=== PATIENT | male | born 1970 | race Caucasian/White ===

== ENCOUNTER → 2017-02-12 | Outpatient (CLI) | payer MEDICAID ==
[~2017-02-12] MED LIST: HYDROCHLOROTHIA1 TA1 PO; LISINOPRIL/HCTZ1 TA3; SYMBICORT 10.10.2 M1 IH; THE MEDICINE SH20 M1 PO; VENTOLIN4 MG IH
--- NOTE | 2017-02-20 22:07 | RADIOLOGY REPORT PS360 ---
MRI-LOW EXT ANY JOINT W/O-RT MRI right ankle HISTORY: RIGHT ANKLE POST SURGICAL PAIN history of 2 surgeries on ankle with the last in October 2016. Pain around the ankle joint but most pronounced medial aspect. Pain with standing ankle swelling Ankle Patient Age: 46 years: Male Ordering Physician: GIANNI RAMIREZ DPM TECHNIQUE: Multiplanar multisequence imaging 1.5 T MR COMPARISON /FINDINGS Outside Preoperative right ankle from February 2016 a limited value but I would note prominent fragmentation at medial malleolus on that study as well as a January 2016 right ankle from this facility. :No recent plain films are available for comparison unfortunately but these would be very helpful as would correlation with more detailed surgical history. Patient has undergone it appears bimalleolar surgery. Understand most recent surgery October 2016. Medial Ankle . The postsurgical changes are most evident in pronounced at the medial ankle.. Superiorly directed screw seen entering at inferior tip of the medial malleolus evident./There is also a second horizontal screw entering medial aspect of the talus. There appears to be a third screw or fixation point and entering oblique resolved fashion into the calcaneus as seen on coronal image 18 Apparently reflecting some type of fixation or fusion about the medial ankle. There is prominent generous ill-defined low signal soft tissue tissue is seen inferior to the mid and malleolus, medial to the talus. Likely healing fibrotic changes in granulation tissue. Low signal on T1 and intermediate signal on T2. There are no focal fluid collections or abscess.. No contrast to evaluate for enhancement pattern. It appears to contain some minimal fluid signal and edema. The tibialis posterior tendon appears to remain intact passes just posterior to the post surgical changes at the tip of the medial malleolus is seen sagittal image 20 the other tendons at the medial and posterior ankle intact Lateral Ankle There seems to be a screw entering inferiorly at the tip the lateral malleolus. With mildly Fragmented bone along at the tip of the lateral malleolus. Probably there is also a horizontal screw passing into the lateral aspect of talus as seen on coronal image 19 or at least a tract of some sort from likely a fixation elements. Again plain film correlation be very helpful. The peroneus brevis tendon is seen passes just along the posterior aspect of the fragmented tip of the lateral malleolus. Although it appears to be a fairly normal signal tendon are certainly could be suspicion of impingement due to this as seen on sagittal image 7, & 6 there is minimal low signal likely granulation and healing right tissue below the tip of the lateral malleolus. No focal abscess or fluid collection. No good evidence of osteomyelitis in either the medial or nor mass lateral malleolus. There is minimal fluid at the ankle joint. Normal upper normal fluid here. The subtalar joint appears satisfactory. There is some mild soft tissue swelling The edema overlying theq lateral aspect of the navicular & midfoot is as seen on on coronal image 12- 8. The Achilles tendon and plantar aponeurosis unremarkable. Normal signal at tibia, fibula, talus and tarsals otherwise noted except to note the postsurgical features. IMPRESSION 1. Prominent Postsurgical changes at the medial and lateral foot as detailed intact. Most prominent residual likely healing granulation tissue & fibrotic tissue is seen inferior to the medial malleolus at medial ankle. Less pronounced healing fibrotic in healing granulation tissue is seen inferior to the lateral malleolus. Findings requires correlation with surgical history. 2. Other details as in text. No abscess.. No osteomyelitis evident . 3. Would note mild soft tissue edema persisting overlying the lateral aspect of the midfoot & most evident just overlying the navicular
== END ==
LOC: RAD 02-09 08:00
DX: M25.571 Pain in right ankle and joints of right foot (principal)

== ENCOUNTER → 2017-06-07 | Outpatient (CLI) | payer MEDICAID ==
--- NOTE | 2017-06-07 15:08 | RADIOLOGY REPORT PS360 ---
History and Indications: Hypertension, diabetes, family history, shortness of breath, palpitations, syncope and fatigue Procedure: Patient received a 0.4 mg of Lexiscan, resting heart rate was 94 bpm, resting blood pressure 120/64, with Lexiscan maximum heart rate achieved was 110 bpm is less than 85% of the maximum predicted heart rate and a blood pressure was 113/54. With Lexiscan patient denied complained of chest pain. Electrocardiogram: Resting electrocardiogram showed sinus rhythm, with Lexiscan there is less than 1.[address] segment depression noted from the baseline EKG. The EKG portion of the Lexiscan is nondiagnostic. Cardiac stress and resting SPECT images: Cardiac stress and rest SPECT images were obtained using technetium 99 Myoview 10.4 mCi at rest and 32.8 mCi at stress, gated SPECT further analysis of segmental wall motion and calculation of the ejection fraction also done. Cardiac stress and rest images show uniform myocardial activity without any segmental perfusion abnormality, computer derived ejection fraction is over 65% with no obvious regional wall motion abnormality, right ventricle is normal size and contractility. Conclusion: 1. The EKG portion of the Lexiscan Myoview is nondiagnostic 2. No obvious scintigraphic evidence of reversible ischemia seen, computer derived ejection fraction is over 65% with no obvious regional wall motion abnormality, right ventricle is normal size and contractility. 3. Normal Lexiscan Myoview study.
--- NOTE | 2017-06-07 16:52 | RADIOLOGY REPORT PS360 ---
PROCEDURE: 2-D M-mode and color Doppler study INDICATIONS FOR THE TEST: Chest pain COPD Heart Murmur Tobacco Smoking Palpitations Fatigue Syncope Edema+ Hypertension+Diabetes Mellitus Rheumatic Fever SOB+KOVACS Obesity+Hyperlipidemia Family History HD Additional History PATIENT INFORMATION HEIGHT: 70 WEIGHT:295 GENDER: Male B/P:133/83 2-D/M-MODE INTERPRETATION: 2-D MEASUREMENTS OBSERVED VALUES IN CMS Right Ventricular Dimension (RVDd) 2.9 Interventricular Septum (Thickness)(IVsd) 1.2 Left Ventricular Internal Dimensions(LVIDd) 4.7 Left Ventricular Posterior Wall (Thickness)(LVPWd) 1.3 Aortic Root 3.1 Aortic Cusp Separation 1.7 Left Atrial Dimensions (LAD) 4.0 2D 1. Left atrium is qualitatively mildly enlarged, left ventricle is normal size, there is mild concentric left ventricular hypertrophy present, visually estimated ejection fraction 55% with no obvious regional wall motion abnormality. 2. The right atrium is normal size, right ventricle is mildly enlarged with normal contractility. 3. The aortic valve is minimally thickened and calcified, there is no aortic stenosis. 4. The mitral and tricuspid valvular grossly normal. 5. The pulmonic valve is poorly visualized. 6. There is trivial pericardial effusion noted. DOPPLER INTERROGATION: Doppler interrogation of the aortic, mitral and tricuspid valvular presence of mild mitral and tricuspid regurgitation, tricuspid regurgitant jet velocity is insufficient for calculation of the right ventricular systolic pressure, grade 1 diastolic dysfunction seen without tissue Doppler evidence of raised left atrial pressure. CONCLUSION: 1. Mildly enlarged left atrium, normal left ventricular size, mild concentric left ventricular hypertrophy, visually estimated ejection fraction 55% with no obvious regional wall motion abnormality, grade 1 diastolic dysfunction seen without tissue Doppler evidence of raised left atrial pressure. 2. Mild mitral and tricuspid regurgitation. 3. Trivial pericardial effusion noted.
== END ==
LOC: RAD 11:51
DX: R01.1 Cardiac murmur, unspecified (principal); I10 Essential (primary) hypertension; Z82.49 Family history of ischemic heart disease and other diseases of the circulatory system
CPT/HCPCS: A9502; J2785